=== PATIENT | male | born 1980 | race Caucasian/White ===

== ENCOUNTER 2023-05-15 17:50 | Emergency (ER) | payer MEDICAID ==
[~2023-05-15] VITALS: Ht 167.6 cm; Wt 57.6 kg
[2023-05-15 18:03] VITALS: O2SAT 98
[2023-05-15] MEDS: KETOROLAC 30MG/ML VIAL IM ONE (20:30)
[2023-05-15] MEDS ORDERED: NAPR-1176 MT (20:59)
[2023-05-15 21:16] VITALS: BP 115/56; PULSE 63; RESP 16; TEMP 98
== END 2023-05-15 21:37 | disposition home or self-care (01) ==
LOC: ER 17:50
DX: S20.212A Contusion of left front wall of thorax, initial encounter (principal); S16.1XXA Strain of muscle, fascia and tendon at neck level, initial encounter; S39.012A Strain of muscle, fascia and tendon of lower back, initial encounter; S09.90XA Unspecified injury of head, initial encounter; V49.49XA Driver injured in collision with other motor vehicles in traffic accident, initial encounter; Y93.89 Activity, other specified; Y92.89 Other specified places as the place of occurrence of the external cause; Y99.8 Other external cause status
CPT/HCPCS: 99283; 71045; 96372; J1885